=== PATIENT | male | born 1950 | race Caucasian/White ===

== ENCOUNTER 2016-11-13 11:38 | Inpatient (IN) | payer BC ==
[~2016-11-13 11:38] MED LIST: ACETAMINOPHEN500 M4 PO; AMARYL2 M1 PO; CHLORTHALIDONE25 M1 PO; LANTUS100 UNITS/ SC; LIPITOR80 M1 PO; LISINOPRIL40 M1 PO; METFORMIN HCL1000 M2 PO; MOTRIN IB200 M1 PO; ULTRAM50 M1 PO
[2016-11-14 07:09] LABS: ANION GAP 13 mmol/L (0-20); BLOOD UREA NITROGEN 16 mg/dl (6-24); CALCIUM 8.8 mg/dl (8.5-10.5); CARBON DIOXIDE-VENOUS 27 mmol/L (22-32); CHLORIDE 99 mmol/l (96-110); CREATININE 1.08 mg/dl (0.60-1.30); GLUCOSE 309 mg/dL (70-110); POTASSIUM 4.3 mmol/L (3.7-5.1); SODIUM 135 mmol/L (135-145); eGFR VALUE FOR BLACK 84 mL/Min
[2016-11-15] MEDS ORDERED: NORCO 5-325 TA1 EACH PO (15:11)
[2016-11-15] MEDS ORDERED: SENOKOT-S TABL1 EACH PO (15:16)
== END 2016-11-15 16:21 | DRG 520 ==
LOC: SHSB 11:38 → ORE 17:58 → PACU 21:13 → 5EB 22:10
PROVIDERS: Family Medicine; ADMIT Neurological Surgery
PROC: 0RT90ZZ Resection of Thoracic Vertebral Disc, Open Approach (ICD-10-PCS; principal; 2016-11-13)
PROC: 0RP Upper Joints, Removal (ICD-10-PCS; 2016-11-13)
DX: M51.04 Intervertebral disc disorders with myelopathy, thoracic region (principal); E11.40 Type 2 diabetes mellitus with diabetic neuropathy, unspecified; E78.5 Hyperlipidemia, unspecified; I10 Essential (primary) hypertension; K59.00 Constipation, unspecified; M19.90 Unspecified osteoarthritis, unspecified site; M48.00 Spinal stenosis, site unspecified; M51.24 Other intervertebral disc displacement, thoracic region; S90.812A Abrasion, left foot, initial encounter; Z87.2 Personal history of diseases of the skin and subcutaneous tissue
CPT/HCPCS: G8978-GP-CI; G8979-GP-CI; G8980-GP-CI; J0690; J1815; J7050